=== PATIENT | male | born 1975 | race Caucasian/White ===

== ENCOUNTER → 2020-05-14 | Outpatient (CLI) | payer BC ==
--- NOTE | 2020-05-14 15:56 | CARD ---
MR#: [id number] Date of Study: 05/14/2020 Ordering Physician: LAWRENCE CORREA, Referring Physician: LAWRENCE CORREA, Tech: Amanda Leonard RDCS APPROVED REPORT EXAM: Two-dimensional and M-mode echocardiogram with Doppler and color Doppler. Other Information Quality : Good INDICATION Chest Pain 2D DIMENSIONS RVDd3.2 (2.9-3.5cm)Left Atrium(2D)3.2 (1.6-4.0cm) IVSd1.0 (0.7-1.1cm)Aortic Root(2D)3.1 (2.0-3.7cm) LVDd5.4 (3.9-5.9cm)LVOT Diameter2.3 (1.8-2.4cm) PWd1.0 (0.7-1.1cm)LVDs3.8 (2.5-4.0cm) FS (%) 29.3 %SV77.6 ml LVEF(%)55.8 (>50%) Aortic Valve AoV Peak Brannon.118.6cm/sAoV VTI21.3cm AO Peak GR.5.6mmHgLVOT Peak Brannon.111.3cm/s LVOT VTI 21.79cmAO Mean GR.3mmHg RAMÍREZ (VMAX)3.01yx1CPZ (VTI)4.20cm2 Mitral Valve MV E Sarrovbt12.0cm/sMV DECEL UINM898wf MV A Fvxakubl96.8cm/sE/A Ratio1.2 Pulmonary Vein S1 Vuughdcv69.2cm/sD2 Bsohxfnx21.5cm/s LEFT VENTRICLE The left ventricle is normal size. There is normal left ventricular wall thickness. The left ventricu lar systolic function is normal. The Ejection Fraction is 55-60%. There is normal LV segmental wall m otion. The left ventricular diastolic function and filling is normal for age. RIGHT VENTRICLE The right ventricle is normal size. The right ventricular systolic function is normal. ATRIA The left atrium size is normal. The right atrium size is normal. The interatrial septum is intact wit h no evidence for an atrial septal defect or patent foramen ovale as noted on 2-D or Doppler imaging. AORTIC VALVE The aortic valve is normal in structure and function. Doppler and Color Flow revealed no significant aortic regurgitation. There is no significant aortic valvular stenosis. MITRAL VALVE The mitral valve is normal in structure and function. There is no evidence of mitral valve prolapse. There is no mitral valve stenosis. Doppler and Color Flow revealed no mitral valve regurgitation note d. TRICUSPID VALVE The tricuspid valve is normal in structure and function. Doppler and Color Flow revealed trace tricus pid regurgitation. There is no tricuspid valve stenosis. PULMONIC VALVE The pulmonary valve is normal in structure and function. Doppler and Color Flow revealed trace pulmon ic valvular regurgitation. There is no pulmonic valvular stenosis. GREAT VESSELS The aortic root is normal in size. The ascending aorta is normal in size. The IVC is normal in size a nd collapses >50% with inspiration. PERICARDIAL EFFUSION There is no evidence of significant pericardial effusion. Critical Notification Critical Value: No <Conclusion> The left ventricular systolic function is normal. The Ejection Fraction is 55-60%. There is normal LV segmental wall motion. Doppler and Color Flow revealed trace tricuspid regurgitation. There is no evidence of significant pericardial effusion. Signed by : Lawrence Correa, Electronically Approved : 05/14/2020 15:55:37
--- NOTE | 2020-05-14 16:05 | RAD ---
MR#: [id number] Date of Study: 05/14/2020 Ordering Physician: LAWRENCE CORREA, Referring Physician: LAWRENCE CORREA, Tech: Prema Garland RVT, ROWENA APPROVED REPORT Patient Location : OUT-PATIENT Indications Varicose Veins Grayscale images of the bilateral greater and lesser saphenous veins did not reveal any obvious evide nce of thrombus. The bilateral lesser saphenous veins did not reveal any evidence of reflux. The right great saphenous vein measures approximately 5 mm and has a maximum reflux time of 2.7 secon ds. The left great saphenous vein measures 5 mm and has a maximum reflux time of 1.1 seconds. Past History Compression Stockings : Yes Greater Saphenous Veins (GSV) Significant venous relux noted in the RIGHT GSV at the following levels : Superficial Femoral Junctio n, Proximal Thigh, Mid Thigh, Distal Thigh Significant venous relux noted in the LEFT GSV at the following levels : Superficial Femoral Junction , Proximal Thigh Critical Notification Critical Value: No <Conclusion> 1. Positive for reflux in the bilateral greater saphenous veins, although significant reflux is most ly noted on the right side. Signed by : Panchito Catherine, Electronically Approved : 05/14/2020 16:05:12
== END | disposition home or self-care (01) ==
LOC: ECHO 12:40
PROVIDERS: ATTEND Internal Medicine Cardiovascular Disease
DX: I87.2 Venous insufficiency (chronic) (peripheral) (principal); I86.8 Varicose veins of other specified sites; R07.9 Chest pain, unspecified
CPT/HCPCS: 93306; 93970

== ENCOUNTER → 2020-08-07 | Outpatient (CLI) | payer BC ==
--- NOTE | 2020-08-12 09:49 | RAD ---
MR#: [id number] Date of Study: 08/07/2020 Ordering Physician: LAWRENCE CORREA, Referring Physician: LAWRENCE CORREA, Tech: Prema Garland RVT,ROWENA APPROVED REPORT Bilateral Lower Extremity Venous Study for DVT Patient Location: OUT-PATIENT Indications Varicose Veins Grayscale images of the bilateral deep veins not reveal any obvious evidence of thrombus. The bilate ral greater saphenous veins have been successfully ablated. There are bilateral groin lymph nodes largest measuring 3.8 x 2.4 x 0.8 cm. Vein Imaging (Right) CFV (R): Compressible SFJ (R): Compressible FEM (R): Compressible POP (R): Compressible DFV (R): Compressible PTV (R): Compressible Peroneals (R): Compressible Vein Imaging (Left) CFV (L): Compressible SFJ (L): Compressible FEM (L): Compressible POP (L): Compressible DFV (L): Compressible PTV (L): Compressible Peroneals (L): Compressible Critical Notification Critical Value: No <Conclusion> 1. Negative for DVT in the bilateral lower extremities 2. Successful bilateral great saphenous vein ablations 3. Bilateral groin lymphadenopathy, likely reactive but clinical correlation and further evaluation recommended. Signed by : Panchito Catherine, Electronically Approved : 08/12/2020 09:48:46
== END ==
LOC: US 14:07
PROVIDERS: ATTEND Internal Medicine Cardiovascular Disease
DX: R59.1 Generalized enlarged lymph nodes (principal); I87.2 Venous insufficiency (chronic) (peripheral)
CPT/HCPCS: 93970